=== PATIENT | male | born 1950 | race Caucasian/White ===

== ENCOUNTER 2019-03-14 10:34 | Inpatient (IN) | payer OTHER ==
[~2019-03-14] VITALS: Ht 190.5 cm; Wt 211.4 kg
[2019-03-14] MEDS ORDERED: CLINDAMYCIN 900MG IV 50 ML IV ONE (12:30)
[2019-03-14] MEDS ORDERED: PIPERACILLIN-TAZOB 3.375GM 100 ML IV ONE (12:30)
[2019-03-14 13:22] LABS: Basophils # (auto) 0.1 uL; Basophils % (auto) 1.1 % (0.0-2.0); Eosinophils # (auto) 0.1 uL; Eosinophils % (auto) 1.5 % (0.0-7.0); Hematocrit 40.3 % (41.0-53.0); Hemoglobin 13.1 g/dL (13.5-17.5); Lymphocytes # (auto) 1.8 uL; Lymphocytes % (auto) 21.1 % (10.0-50.0); Mean Corpuscular Hgb Conc. 32.6 g/dL (32.0-36.0); Monocytes # (auto) 0.6 uL; Monocytes % (auto) 7.7 % (0.0-12.0); Neutrophils # (auto) 5.7 uL; Neutrophils % (auto) 68.6 % (37.0-80.0); Nucleated Red Blood Cells % 0.1 %; Platelet Count (auto) 263 10^3/uL (140-450); Red Blood Cells 4.53 10^6/uL (4.5-5.90); Red Cell Distribution Width 15.8 % (11.8-14.3); White Blood Cell 8.4 10^3/uL (4.4-10.8)
[2019-03-14 13:47] LABS: Albumin 3.4 g/dL (3.4-5.0); BUN/Creatinine Ratio 21.2; Bilirubin, Total 0.4 mg/dL (0.2-1.0); Potassium 4.4 mmol/L (3.5-5.1); Total Protein 8.2 g/dL (6.4-8.2)
[2019-03-14] MEDS ORDERED: NITROGLYCERIN 0.4 MG SL TAB SL PRN (15:15)
[2019-03-14] MEDS ORDERED: MORPHINE SULF INJ 2 MG/ML SYRINGE 1ML IV PRN (15:15)
[2019-03-14] MEDS ORDERED: ONDANSETRON HCL 4 MG/2 ML VIAL IV PRN (15:15)
[2019-03-14] MEDS: HYDROcodone-ACET 5/325MG TAB PO PRN (17:10)
[2019-03-14 20:00] VITALS: BP 152/79
[2019-03-14] MEDS: MORPHINE SULF INJ 2 MG/ML SYRINGE 1ML IV PRN (20:57)
[2019-03-14] MEDS: CLINDAMYCIN 600MG IV 50 ML IV SCH (21:02)
[2019-03-14 22:00] VITALS: BP 152/79
[2019-03-15] MEDS: HYDROcodone-ACET 5/325MG TAB PO PRN (01:56)
[2019-03-15] MEDS ORDERED: INFLUENZA QUAD 2019-2020 0.5ml SYRG IM ONE (04:30)
[2019-03-15] MEDS ORDERED: PNEUMOCOCCAL VACC POLYS 25 MCG/0.5 ML VIAL IM ONE (04:30)
[2019-03-15 05:00] VITALS: BP 119/58
[2019-03-15] MEDS: MORPHINE SULF INJ 2 MG/ML SYRINGE 1ML IV PRN (05:42)
[2019-03-15] MEDS: CLINDAMYCIN 600MG IV 50 ML IV SCH ×2 (06:00→14:00)
[2019-03-15 09:00] VITALS: BP 134/65
[2019-03-15] MEDS ORDERED: CLIN300C8 PO (12:24)
[2019-03-15 12:40] VITALS: BP 134/65
[2019-03-15 13:00] VITALS: BP 155/85
== END 2019-03-15 16:15 | disposition home health service (06) | DRG 603 ==
LOC: ER 10:39 → TELE 10:40 → TELE-WESTW 18:20
PROVIDERS: ADMIT Internal Medicine; ATTEND Internal Medicine
DX: L03.115 Cellulitis of right lower limb (principal); Z68.43 Body mass index [BMI] 50.0-59.9, adult; I89.0 Lymphedema, not elsewhere classified; F17.200 Nicotine dependence, unspecified, uncomplicated; L03.116 Cellulitis of left lower limb; E66.01 Morbid (severe) obesity due to excess calories; Z83.3 Family history of diabetes mellitus; Z86.718 Personal history of other venous thrombosis and embolism; Z23 Encounter for immunization
CPT/HCPCS: 36415; 71045; 80053; 83605; 83880; 85025; 87040; 87077; 87186; 87205; 93970; G0378; J2543; J3490

== ENCOUNTER 2019-04-20 14:02 | Inpatient (IN) | payer OTHER ==
[~2019-04-20] VITALS: Ht 190.5 cm; Wt 200.1 kg
[~2019-04-20 14:02] MED LIST: CLIN300C8 PO
[2019-04-20 14:45] LABS: Basophils # (auto) 0.1 uL; Basophils % (auto) 0.7 % (0.0-2.0); Eosinophils # (auto) 0.1 uL; Eosinophils % (auto) 1.3 % (0.0-7.0); Hematocrit 40.2 % (41.0-53.0); Hemoglobin 13.5 g/dL (13.5-17.5); Lymphocytes # (auto) 1.4 uL; Lymphocytes % (auto) 17.9 % (10.0-50.0); Mean Corpuscular Hemoglobin 29.8 pg (28.0-32.0); Mean Corpuscular Hgb Conc. 33.5 g/dL (32.0-36.0); Monocytes # (auto) 0.6 uL; Monocytes % (auto) 7.3 % (0.0-12.0); Neutrophils # (auto) 5.7 uL; Neutrophils % (auto) 72.8 % (37.0-80.0); Nucleated Red Blood Cells % 0.1 %; Platelet Count (auto) 247 10^3/uL (140-450); Red Blood Cells 4.52 10^6/uL (4.5-5.90); Red Cell Distribution Width 15.4 % (11.8-14.3); White Blood Cell 7.8 10^3/uL (4.4-10.8)
[2019-04-20] MEDS ORDERED: SODIUM CHLORIDE 0.9% 500 ML IV ONE (14:54)
[2019-04-20 15:00] LABS: Albumin 3.4 g/dL (3.4-5.0); Calcium 8.7 mg/dL (8.5-10.1)
[2019-04-20] MEDS ORDERED: CLINDAMYCIN 600MG IV 50 ML IV ONE (15:00)
[2019-04-20 15:06] LABS: BUN/Creatinine Ratio 16.9; Bilirubin, Total 0.4 mg/dL (0.2-1.0); Total Protein 8.1 g/dL (6.4-8.2)
[2019-04-20] MEDS ORDERED: VANCOMYCIN PER PHARMACY 0 MG IV SCH (17:45)
[2019-04-20] MEDS ORDERED: MORPHINE SULF INJ 2 MG/ML SYRINGE 1ML IV PRN (17:45)
[2019-04-20] MEDS ORDERED: NITROGLYCERIN 0.4 MG SL TAB SL PRN (17:45)
[2019-04-20] MEDS ORDERED: VANCOMYCIN 1GM/250ML 250 ML IV ONE (18:00)
[2019-04-20] MEDS ORDERED: PIPERACILLIN-TAZOB 3.375GM 100 ML IV ONE ×2 (19:00→21:45)
[2019-04-20 20:45] VITALS: BP 158/74
[2019-04-20 20:48] VITALS: BP 158/74
--- NOTE | 2019-04-20 20:50 | NUR ---
Telemetry admit from [facility] admitted to Telemetry unit. Patient oriented to Abhay Andrews, primary RN, unit, room, bed, and unit policies regarding patient care and visiting hours. Patient now on continuous telemetry monitoring, tele box #68 and telemetry reading on arrival to unit is SR 90. Patient has been weighed by bedscale and encouraged to call if they need something. All questions and concerns addressed, patient verbalized understanding.
--- NOTE | 2019-04-20 21:50 | NUR ---
PAIN ASSESSMENT The patient reports severe bilateral leg pain with a severity of 9/10. The patient currently has no PRN pain medication. Will page hospitalist.
[2019-04-20] MEDS: POTASSIUM EFFERVESENT TAB 25 MEQ PO SCH (22:00)
--- NOTE | 2019-04-20 22:50 | NUR ---
HOSPITALIST CALL BACK Discussed the patient's severe pain with Hospitalist Joao. New order has been received.
[2019-04-20] MEDS: traMADol HCL 50 MG TAB PO PRN (23:25)
[2019-04-20] MEDS: VANCOMYCIN 1,500 MG in D5W 5% 250 ML IV SCH (23:53)
[2019-04-21] MEDS ORDERED: MULT-228 PO (00:18)
[2019-04-21] MEDS: traMADol HCL 50 MG TAB PO PRN ×2 (03:01→19:50)
[2019-04-21] MEDS: PIPERACILLIN-TAZOB 3.375GM 100 ML IV SCH ×4 (03:02→21:23)
[2019-04-21 04:57] VITALS: BP 135/71
[2019-04-21] MEDS: VANCOMYCIN 1,500 MG in D5W 5% 250 ML IV SCH ×3 (06:45→22:37)
[2019-04-21 07:10] LABS: Basophils # (auto) 0 uL; Basophils % (auto) 0.5 % (0.0-2.0); Eosinophils # (auto) 0.1 uL; Eosinophils % (auto) 1.9 % (0.0-7.0); Hematocrit 35.5 % (41.0-53.0); Lymphocytes # (auto) 1.3 uL; Lymphocytes % (auto) 21.1 % (10.0-50.0); Mean Corpuscular Hgb Conc. 33.8 g/dL (32.0-36.0); Monocytes # (auto) 0.6 uL; Monocytes % (auto) 8.9 % (0.0-12.0); Neutrophils # (auto) 4.3 uL; Neutrophils % (auto) 67.6 % (37.0-80.0); Nucleated Red Blood Cells % 0.1 %; Platelet Count (auto) 199 10^3/uL (140-450); Red Blood Cells 3.99 10^6/uL (4.5-5.90); Red Cell Distribution Width 15.5 % (11.8-14.3); White Blood Cell 6.3 10^3/uL (4.4-10.8)
[2019-04-21 07:24] LABS: Calcium 7.9 mg/dL (8.5-10.1); Potassium 3.5 mmol/L (3.5-5.1)
[2019-04-21 07:26] LABS: BUN/Creatinine Ratio 16.4
[2019-04-21 08:00] VITALS: BP 130/73
[2019-04-21 09:00] VITALS: BP 130/73
[2019-04-21] MEDS: POTASSIUM EFFERVESENT TAB 25 MEQ PO SCH ×3 (09:02→22:37)
--- NOTE | 2019-04-21 11:02 | NUR ---
WOUND CARE NOTE: Wound care in to see patient per wound care request regarding wounds that are noted present on admission. Bedside nurse took photograph of patient's wounds upon admission for reference. Patient is 68 y/o male with admitting diagnosis of Leg Cellulitis. Patient with history of Cellulitis, [place], PE. Patient is resting in bed in Rm. 295A. He's awake, alert and oriented. Patient is in no stated pain at this time. He's self turn and reposition and his Nando score is 20. Skin assessment done with the assistance of patient's nurse, SAHRA Lin. Patient's BLE noted with edema, erythema with spread of raised hyperkeratotic lesions. Minimal yellow serous drainage noted on old dressing, mild odor noted. Cleansed patient's BLE wounds with wound cleanser, patted dry with gauze, applied Thera honey gel to open lesions, covered with large abd pads, wrapped with Kerlix and secured with tape. No other wound noted other than two small red scratches, ecchymosis to upper sacrum, area is clean and dry, left open to air. Patient tolerated well. Skin/wound care education provided, verbalized understanding. Left patient sitting at side of bed with all safety precautions in placed. RECOMMENDATION: Nursing to continue EOD/PRN dressing change to BLE wounds per MD order, elevate affected extremity on pillows, continue monitoring by wound care while patient is hospitalized. Addendum: 04/21/19 at 1459 by Kimberly Cook RN Amended: Links added.
[2019-04-21 13:00] VITALS: BP 116/73
[2019-04-21 16:55] LABS: Free T4 (Free Thyroxine) 1.22 ng/dL (0.89-1.76)
[2019-04-21 17:00] VITALS: BP 114/70
--- NOTE | 2019-04-21 17:00 | NUR ---
PT REPORTS THAT HE WALKS FINE WITH CANE AND DOES NOT NEED P.T.
--- NOTE | 2019-04-21 17:25 | NUR ---
D/C planning Per consult for home health for wound care. Patient was previously with [facility] and would like to resume service with home health. Contact and faxed medical records to [facility] Ph:) Fax:). Per Liberty from [facility] they will resume service for patient within 48hrs upon d/c day. Contact [facility] medical [facility] Ph:) spoke to RADHA Akhtar. Per Giovana authorization for [facility] is [id number]. Provided home health with authorization. Addendum: 04/21/19 at 1728 by KIMBERLEE SOLO Amended: Links added.
--- NOTE | 2019-04-21 19:20 | NUR ---
Opening Shift Note Assumed care of patient, awake and alert. No S/S of distress/SOB. The patient c/o bilateral leg pain with a severity of 6/10. Patient is requesting pain medication. Will treat with PRN pain medication. Instructed on POC and to call for assist PRN, will continue to monitor for changes Q1hr and PRN.
[2019-04-21 21:00] VITALS: BP 129/66
[2019-04-21] MEDS: FUROSEMIDE 40 MG/4 ML VIAL IV SCH (22:00)
[2019-04-21] MEDS: GABAPENTIN 400 MG CAP PO SCH (22:37)
[2019-04-21] MEDS: CELECOXIB 100 MG CAP PO SCH (22:37)
[2019-04-22] VITALS (8 sets, daily range): BP systolic 111–132; BP diastolic 63–79
[2019-04-22] MEDS: PIPERACILLIN-TAZOB 3.375GM 100 ML IV SCH ×4 (05:40→21:10)
[2019-04-22 06:33] LABS: BUN/Creatinine Ratio 11.3
[2019-04-22] MEDS: GABAPENTIN 400 MG CAP PO SCH ×3 (07:01→21:10)
[2019-04-22] MEDS: FUROSEMIDE 40 MG/4 ML VIAL IV SCH ×3 (07:01→21:11)
[2019-04-22] MEDS: VANCOMYCIN 1,500 MG in D5W 5% 250 ML IV SCH ×2 (07:39→17:38)
[2019-04-22] MEDS: CELECOXIB 100 MG CAP PO SCH ×2 (09:11→21:11)
[2019-04-22] MEDS: ENOXAPARIN SOD 40 MG/0.4 ML SYRINGE SC SCH (09:12)
[2019-04-22] MEDS: POTASSIUM EFFERVESENT TAB 25 MEQ PO SCH ×2 (09:12→21:11)
[2019-04-22 09:15] LABS: Cholesterol 111 mg/dL (< 200)
[2019-04-22 09:17] LABS: HDL Cholesterol 40 mg/dL (40-59); LDL Cholesterol 62 mg/dL (< 100); Triglycerides 61 mg/dL (< 150)
--- NOTE | 2019-04-22 19:36 | NUR ---
Opening Shift Note Received report and assumed care of patient. Patient is awake and alert. No signs or symptoms of distress noted, patient currently denies pain. Instructed patient on plan of care and to call for assistance as needed. Will continue to monitor.
--- NOTE | 2019-04-23 00:34 | NUR ---
IV removal 20g IV to the Left forearm infiltrated. Discontinued IV with clean sterile technique, catheter tip fully intact. Pressure dressing applied to site. Patient tolerated well. Addendum: 04/23/19 at 0149 by ELLY NIX RN RN 22g
[2019-04-23] MEDS: PIPERACILLIN-TAZOB 3.375GM 100 ML IV SCH ×2 (02:51→09:53)
[2019-04-23 05:24] VITALS: BP 126/72
[2019-04-23] MEDS: GABAPENTIN 400 MG CAP PO SCH (06:20)
[2019-04-23] MEDS: FUROSEMIDE 40 MG/4 ML VIAL IV SCH (06:20)
[2019-04-23] MEDS: VANCOMYCIN 1,500 MG in D5W 5% 250 ML IV SCH (06:21)
[2019-04-23 06:26] LABS: Basophils # (auto) 0 uL; Basophils % (auto) 0.7 % (0.0-2.0); Eosinophils # (auto) 0.2 uL; Eosinophils % (auto) 3.5 % (0.0-7.0); Hematocrit 37.8 % (41.0-53.0); Hemoglobin 12.8 g/dL (13.5-17.5); Lymphocytes # (auto) 1.7 uL; Lymphocytes % (auto) 33.5 % (10.0-50.0); Mean Corpuscular Hgb Conc. 33.9 g/dL (32.0-36.0); Mean Corpuscular Volume 88.4 fL (80.0-100.0); Monocytes # (auto) 0.5 uL; Monocytes % (auto) 9.6 % (0.0-12.0); Neutrophils # (auto) 2.7 uL; Neutrophils % (auto) 52.7 % (37.0-80.0); Nucleated Red Blood Cells % 0.1 %; Platelet Count (auto) 226 10^3/uL (140-450); Red Blood Cells 4.27 10^6/uL (4.5-5.90); Red Cell Distribution Width 15.7 % (11.8-14.3); White Blood Cell 5.2 10^3/uL (4.4-10.8)
[2019-04-23 06:45] LABS: Calcium 8.5 mg/dL (8.5-10.1); Potassium 3.9 mmol/L (3.5-5.1)
[2019-04-23 06:51] LABS: BUN/Creatinine Ratio 13.6; Bilirubin, Total 0.4 mg/dL (0.2-1.0); Total Protein 7.7 g/dL (6.4-8.2)
--- NOTE | 2019-04-23 07:30 | NUR ---
Opening Shift Note Assumed care of patient, awake and alert. No S/S of distress/SOB or pain. Instructed on POC and to call for assist PRN, will continue to monitor for changes Q1hr and PRN. Fall precautions in place per safety protocol.
--- NOTE | 2019-04-23 08:41 | NUR ---
Hospitalist called MD Shaw called, aware of patient status. New orders to discharge patient received, will carry out new orders.
[2019-04-23 09:00] VITALS: BP 134/75
[2019-04-23] MEDS: ENOXAPARIN SOD 40 MG/0.4 ML SYRINGE SC SCH (09:53)
[2019-04-23] MEDS: POTASSIUM EFFERVESENT TAB 25 MEQ PO SCH (09:53)
[2019-04-23] MEDS: CELECOXIB 100 MG CAP PO SCH (09:53)
[2019-04-23 10:20] VITALS: BP 126/72
--- NOTE | 2019-04-23 12:00 | NUR ---
Discharge instructions given as ordered. Encourage to follow up with PMD as instructed. All questions and concerns addressed. Patient verbalized understanding. Medication reconciliation form completed and copy given to patient. IV removed with catheter intact, pressure dressing applied. Photos of wounds taken. Telemetry unit returned to ICU. Patient taken to vehicle via wheelchair with all personal belongings, accompanied by staff. No distress noted at time of departure.
== END 2019-04-23 12:00 | disposition home health service (06) | DRG 603 ==
LOC: ER 14:11 → TELE 14:12 → TELE-WESTW 20:53
PROVIDERS: ADMIT Hospitalist; ATTEND Hospitalist
DX: L03.116 Cellulitis of left lower limb (principal); Z68.43 Body mass index [BMI] 50.0-59.9, adult; L03.115 Cellulitis of right lower limb; F17.200 Nicotine dependence, unspecified, uncomplicated; E66.01 Morbid (severe) obesity due to excess calories; I25.2 Old myocardial infarction; Z86.711 Personal history of pulmonary embolism; Z79.01 Long term (current) use of anticoagulants; Z79.899 Other long term (current) drug therapy
CPT/HCPCS: 36415; 80048; 80053; 80061; 80202; 82607; 83036; 83605; 84439; 84443; 85025; 85652; 86141; 87040; 87077; 87186; 87205; 93306; 93970; 96365; 96367; G0378; J2543; J3490; J7060

== ENCOUNTER 2023-04-01 00:42 | Inpatient (IN) | payer OTHER ==
[~2023-04-01] VITALS: Ht 177.8 cm; Wt 181.0 kg
[2023-04-01] VITALS (10 sets, daily range): BP systolic 127; BP diastolic 63; PULSE 74–94; RESP 12–22; TEMP 98.3; O2SAT 94–100
[~2023-04-01 00:42] MED LIST changes: +CLIN300C70 PO; -CLIN300C8 PO; +MULT-228 PO
[2023-04-01] MEDS ORDERED: ACETAMINOPHEN 325 MG TAB PO ONE (01:45)
[2023-04-01] MEDS: ASPirin 81 mg TAB PO ONE ×2 (02:41→02:53)
[2023-04-01] MEDS ORDERED: ALBUTEROL MEDNEB 2.5 mg/3ml NEB NEB ONE (02:45)
[2023-04-01] MEDS ORDERED: VANCOMYCIN PER PHARMACY 0 MG IV SCH (02:45)
[2023-04-01] MEDS ORDERED: methylPREDNISolone SOD SUCC 125 MG/2 ML VL IV ONE (02:45)
[2023-04-01] MEDS ORDERED: IPRATROPIUM BROM 0.5 MG/2.5ML INH SOL NEB ONE (02:45)
[2023-04-01] MEDS ORDERED: AZITHROMYCIN 500MG/ 250ML 250 ML IV ONE (02:45)
[2023-04-01 02:58] LABS: Base Excess -0.8 mmol/L (-2.0-2.0)
[2023-04-01] MEDS ORDERED: cefTRIAXone 1GM/50ML D5W 50 ML IV SCH (03:00)
[2023-04-01 03:06] LABS: Basophils # (auto) 0 10 ^3/uL (0-0.2); Basophils % (auto) 0.2 % (0.0-2.0); Eosinophils # (auto) 0 10 ^3/uL (0-0.8); Hematocrit 35.5 % (41.0-53.0); Hemoglobin 11.5 g/dL (13.5-17.5); Lymphocytes # (auto) 0.7 10 ^3/uL (0.4-5.4); Mean Corpuscular Hemoglobin 30.8 pg (28.0-32.0); Mean Corpuscular Hgb Conc. 32.5 g/dL (32.0-36.0); Mean Corpuscular Volume 94.6 fL (80.0-100.0); Monocytes # (auto) 1.6 10 ^3/uL (0-1.3); Monocytes % (auto) 11.2 % (0.0-12.0); Neutrophils # (auto) 11.8 10 ^3/uL (1.6-8.6); Neutrophils % (auto) 83.6 % (37.0-80.0); Red Blood Cells 3.75 10^6/uL (4.5-5.90); Red Cell Distribution Width 14.1 % (11.8-14.3); White Blood Cell 14.2 10^3/uL (4.4-10.8)
[2023-04-01 03:18] LABS: INR 1.15 (0.9-1.15); Partial Thromboplastin Time 34.7 SEC (24.5-34.5)
[2023-04-01 03:27] LABS: Alanine Aminotransferase 26 U/L (7-40); Alkaline Phosphatase 65 U/L (46-116); Calcium 8.5 mg/dL (8.7-10.4); Carbon Dioxide 24 mmol/L (20-30); Chloride 102 mmol/L (98-107)
[2023-04-01 03:28] LABS: Albumin 3.9 g/dL (3.2-4.8); Anion Gap 6 (5-15); Aspartate Aminotransferase 37 U/L (13-40); BUN/Creatinine Ratio 17.7 (10.0-20.0); Bilirubin, Total 0.6 mg/dL (0.2-1.0); Blood Urea Nitrogen 14 mg/dL (9-23); Glucose 144 mg/dL (74-106); Potassium 4.1 mmol/L (3.5-5.1); Sodium 132 mmol/L (136-145); Total Protein 6.9 g/dL (5.7-8.2)
[2023-04-01] MEDS ORDERED: VANCOMYCIN 1GM/250ML 250 ML IV ONE (04:00)
[2023-04-01 05:30] LABS: COVID19 ANTIGEN SOFIA FIA NEGATIVE (NEGATIVE)
[2023-04-01 08:21] LABS: Urine Bacteria NONE SEEN /hpf (None Seen); Urine Blood Negative /uL (Negative); Urine Clarity HAZY (Clear); Urine Color Yellow (Yellow); Urine Hyaline Cast MOD /lpf (0 - 2); Urine Mucus MANY (None Seen); Urine Protein, UAD 2+ (Negative); Urine Specific Gravity 1.031 (1.001-1.035); Urine WBC 33 /hpf (0 - 3)
[2023-04-01] MEDS: IPRATROPIUM BROM 0.5 MG/2.5ML INH SOL NEB SCH ×3 (10:03→18:25)
[2023-04-01] MEDS: ALBUTEROL MEDNEB 2.5 mg/3ml NEB NEB SCH ×3 (10:03→18:25)
[2023-04-01] MEDS: methylPREDNISolone SOD SUCC 40 MG/ML VL IV SCH ×2 (10:25→21:46)
[2023-04-01] MEDS: levoFLOXacin 500MG 100 ML IV SCH (10:39)
[2023-04-01] MEDS ORDERED: VANCOMYCIN 1GM/250ML 250 ML IV SCH (12:00)
[2023-04-02] VITALS (19 sets, daily range): BP systolic 117–134; BP diastolic 60–73; PULSE 76–119; RESP 18–22; TEMP 98–99.5; O2SAT 90–98
[2023-04-02] MEDS: ALBUTEROL MEDNEB 2.5 mg/3ml NEB NEB SCH ×6 (00:30→22:45)
[2023-04-02] MEDS: IPRATROPIUM BROM 0.5 MG/2.5ML INH SOL NEB SCH ×6 (00:30→22:45)
[2023-04-02 08:18] LABS: Basophils # (auto) 0 10 ^3/uL (0-0.2); Basophils % (auto) 0.3 % (0.0-2.0); Eosinophils # (auto) 0 10 ^3/uL (0-0.8); Hematocrit 33.5 % (41.0-53.0); Hemoglobin 10.9 g/dL (13.5-17.5); Mean Corpuscular Hgb Conc. 32.7 g/dL (32.0-36.0); Mean Corpuscular Volume 91.7 fL (80.0-100.0); Monocytes % (auto) 6.3 % (0.0-12.0); Neutrophils # (auto) 14.3 10 ^3/uL (1.6-8.6); Neutrophils % (auto) 87.4 % (37.0-80.0); Red Blood Cells 3.65 10^6/uL (4.5-5.90); Red Cell Distribution Width 14.2 % (11.8-14.3); White Blood Cell 16.4 10^3/uL (4.4-10.8)
[2023-04-02] MEDS: methylPREDNISolone SOD SUCC 40 MG/ML VL IV SCH ×2 (09:31→21:45)
[2023-04-02] MEDS: levoFLOXacin 500MG 100 ML IV SCH (09:31)
[2023-04-02] MEDS ORDERED: HYDROcodone-ACET 5/325MG TAB PO PRN (12:15)
[2023-04-02] MEDS: NYSTATIN TOPICAL POWDER 15GM TOP SCH (22:16)
[2023-04-03] VITALS (17 sets, daily range): BP systolic 129–144; BP diastolic 72–91; PULSE 70–107; RESP 16–20; TEMP 97.5–98.2; O2SAT 91–100
[2023-04-03] MEDS: ALBUTEROL MEDNEB 2.5 mg/3ml NEB NEB SCH ×5 (06:22→22:36)
[2023-04-03] MEDS: IPRATROPIUM BROM 0.5 MG/2.5ML INH SOL NEB SCH ×5 (06:22→22:36)
[2023-04-03] MEDS: levoFLOXacin 500MG 100 ML IV SCH (11:26)
[2023-04-03] MEDS: NYSTATIN TOPICAL POWDER 15GM TOP SCH ×2 (11:26→22:27)
[2023-04-03] MEDS: methylPREDNISolone SOD SUCC 40 MG/ML VL IV SCH ×2 (11:26→22:24)
[2023-04-04] VITALS (17 sets, daily range): BP systolic 123–146; BP diastolic 65–79; PULSE 62–123; RESP 16–22; TEMP 97.8–98.8; O2SAT 90–98
[2023-04-04] MEDS: IPRATROPIUM BROM 0.5 MG/2.5ML INH SOL NEB SCH ×5 (06:42→22:18)
[2023-04-04] MEDS: ALBUTEROL MEDNEB 2.5 mg/3ml NEB NEB SCH ×5 (06:42→22:18)
[2023-04-04 08:41] LABS: Hepatitis B Surface Antigen Negative (Negative)
[2023-04-04 09:02] LABS: Hepatitis C Antibody Negative (Negative)
[2023-04-04] MEDS: NYSTATIN TOPICAL POWDER 15GM TOP SCH ×2 (11:02→22:01)
[2023-04-04] MEDS: levoFLOXacin 500MG 100 ML IV SCH (11:02)
[2023-04-04] MEDS: methylPREDNISolone SOD SUCC 40 MG/ML VL IV SCH ×2 (11:02→21:58)
[2023-04-04] MEDS: DOCUSATE SOD 100 MG CAP PO PRN (20:34)
[2023-04-05] VITALS (10 sets, daily range): BP systolic 121–138; BP diastolic 62–76; PULSE 18–91; RESP 18–20; TEMP 97.3–98.3; O2SAT 90–95
[2023-04-05] MEDS: ALBUTEROL MEDNEB 2.5 mg/3ml NEB NEB SCH ×2 (07:25→12:37)
[2023-04-05] MEDS: IPRATROPIUM BROM 0.5 MG/2.5ML INH SOL NEB SCH ×2 (07:26→12:37)
[2023-04-05] MEDS: methylPREDNISolone SOD SUCC 40 MG/ML VL IV SCH (10:13)
[2023-04-05] MEDS ORDERED: levoFLOXacin 500 MG TAB PO SCH (14:00)
[2023-04-05] MEDS: DOCUSATE SOD 100 MG CAP PO PRN (14:45)
== END 2023-04-05 18:20 | DRG 189 ==
LOC: EDBD 00:42 → ER 00:42 → TELE 17:45 → TELE-WESTW 23:19
PROVIDERS: ADMIT Internal Medicine; ATTEND Internal Medicine
DX: J96.01 Acute respiratory failure with hypoxia (principal); J44.1 Chronic obstructive pulmonary disease with (acute) exacerbation; Z68.43 Body mass index [BMI] 50.0-59.9, adult; E66.01 Morbid (severe) obesity due to excess calories; R73.9 Hyperglycemia, unspecified; G62.9 Polyneuropathy, unspecified; S00.33XA Contusion of nose, initial encounter; Z53.20 Procedure and treatment not carried out because of patient's decision for unspecified reasons; Z83.3 Family history of diabetes mellitus; Z20.822 Contact with and (suspected) exposure to COVID-19; W18.39XA Other fall on same level, initial encounter; Y93.89 Activity, other specified; Y92.89 Other specified places as the place of occurrence of the external cause; Y99.8 Other external cause status
CPT/HCPCS: 36415; 36600; 70450; 71045; 71275; 80053; 81001; 82553; 82565; 82805; 83605; 83735; 83880; 84443; 84484; 85025; 85379; 85610; 85730; 86803; 87040; 87070; 87086; 87205; 87340; 87426; 93005; 93306; 94640; 95819; 96365; 96367; 96375; 97110; 97116; 97163; 97530; 99291; G0378; J0696; J1956

== ENCOUNTER 2023-04-26 09:07 | Observation (INO) | payer OTHER ==
[~2023-04-26] VITALS: Ht 167.6 cm; Wt 199.0 kg
[2023-04-26 09:30] VITALS: PULSE 93; RESP 24; O2SAT 95
[2023-04-26] MEDS ORDERED: ACCU-CHEK COMFORT CURVE STRIP VI ONE (09:30)
[2023-04-26 10:09] LABS: Basophils # (auto) 0 10 ^3/uL (0-0.2); Basophils % (auto) 0.6 % (0.0-2.0); Eosinophils # (auto) 0.1 10 ^3/uL (0-0.8); Eosinophils % (auto) 1.1 % (0.0-7.0); Hemoglobin 13.6 g/dL (13.5-17.5); Lymphocytes # (auto) 1.1 10 ^3/uL (0.4-5.4); Lymphocytes % (auto) 20.2 % (10.0-50.0); Mean Corpuscular Hemoglobin 30.7 pg (28.0-32.0); Mean Corpuscular Hgb Conc. 33.2 g/dL (32.0-36.0); Mean Corpuscular Volume 92.5 fL (80.0-100.0); Monocytes # (auto) 0.5 10 ^3/uL (0-1.3); Monocytes % (auto) 8.9 % (0.0-12.0); Neutrophils # (auto) 3.8 10 ^3/uL (1.6-8.6); Neutrophils % (auto) 69.2 % (37.0-80.0); Nucleated Red Blood Cells % 0.1 %; Red Blood Cells 4.44 10^6/uL (4.5-5.90); Red Cell Distribution Width 14.8 % (11.8-14.3); White Blood Cell 5.5 10^3/uL (4.4-10.8)
[2023-04-26 10:28] LABS: Alanine Aminotransferase 40 U/L (7-40); Alkaline Phosphatase 55 U/L (46-116); Anion Gap 10 (5-15); BUN/Creatinine Ratio 17.7 (10.0-20.0); Blood Urea Nitrogen 11 mg/dL (9-23); Calcium 9.7 mg/dL (8.5-10.1); Carbon Dioxide 27 mmol/L (20-30); Chloride 104 mmol/L (98-107); Glucose 120 mg/dL (74-106); Potassium 4.2 mmol/L (3.5-5.1); Sodium 141 mmol/L (136-145)
[2023-04-26 10:29] LABS: Aspartate Aminotransferase 25 U/L (13-40); Bilirubin, Total 0.8 mg/dL (0.2-1.0)
[2023-04-26 10:40] LABS: Lactic Acid w/Reflex 2.3 mmol/L (0.4-2.0)
[2023-04-26] MEDS ORDERED: AMIODARONE 450mg/250ml AE 250 ML IV SCH (12:30)
[2023-04-26] MEDS ORDERED: AMIODARONE BOLUS KIT 100 ML IV ONE (12:30)
[2023-04-26 13:20] LABS: Urine Bacteria NONE SEEN /hpf (None Seen); Urine Blood Negative /uL (Negative); Urine Clarity HAZY (Clear); Urine Color Yellow (Yellow); Urine Hyaline Cast FEW /lpf (0 - 2); Urine Mucus FEW (None Seen); Urine Protein, UAD 1+ (Negative); Urine Specific Gravity 1.031 (1.001-1.035); Urine WBC 12 /hpf (0 - 3)
[2023-04-26 13:54] LABS: Amphetamine Screen, Urine Neg (NEGATIVE); Benzodiazephine Screen, Urine Neg (NEGATIVE)
[2023-04-26 13:55] LABS: Barbiturate Scree,Urine Neg (NEGATIVE); Cocaine Screen, Urine Neg (NEGATIVE)
[2023-04-26 13:59] LABS: Cannabinoid Screen, Urine Neg (NEGATIVE); Opiate Scree,Urine Pos (NEGATIVE); Phencyclidine Screen, Urine Neg (NEGATIVE)
[2023-04-26] MEDS ORDERED: ONDANSETRON HCL 4 MG/2 ML VIAL IV PRN (14:15)
[2023-04-26] MEDS: METOPROLOL TARTRATE 25 MG TAB PO SCH ×2 (15:44→22:05)
[2023-04-26 19:40] VITALS: PULSE 93; RESP 20; O2SAT 95
[2023-04-26] MEDS: DOCUSATE SOD 100 MG CAP PO PRN (22:01)
[2023-04-26 22:44] VITALS: BP 132/66; PULSE 82; RESP 18; TEMP 98.2; O2SAT 96
[2023-04-26] MEDS: ACETAMINOPHEN 325 MG TAB PO PRN (23:29)
[2023-04-27 04:47] VITALS: BP 128/76; PULSE 84; RESP 18; TEMP 97.9; O2SAT 95
[2023-04-27 08:00] VITALS: BP 158/84; PULSE 75; PULSE 91; RESP 20; TEMP 97.6; O2SAT 98
[2023-04-27] MEDS: ACETAMINOPHEN 325 MG TAB PO PRN ×2 (10:58→18:52)
[2023-04-27] MEDS: METOPROLOL TARTRATE 25 MG TAB PO SCH ×2 (10:58→22:25)
[2023-04-27 12:00] VITALS: BP 132/70; PULSE 82; RESP 20; TEMP 97.8; O2SAT 96
[2023-04-27] MEDS: APIXABAN 5 MG TAB PO SCH ×2 (12:00→22:25)
[2023-04-27 16:00] VITALS: BP 119/71; PULSE 88; RESP 20; TEMP 97.8; O2SAT 95
[2023-04-27] MEDS: DOCUSATE SOD 100 MG CAP PO PRN (18:52)
[2023-04-27 20:00] VITALS: PULSE 88
[2023-04-27 22:00] VITALS: BP 118/67; PULSE 86; RESP 18; TEMP 98.4; O2SAT 94
[2023-04-27] MEDS: MUPIROCIN 2% OINT 15gm or 22gm FOR MRSA NARES EACHNOSTRI SCH (22:24)
[2023-04-28 05:00] VITALS: BP 130/77; PULSE 73; RESP 19; TEMP 98.1; O2SAT 93
[2023-04-28 08:00] VITALS: BP 127/76; PULSE 65; PULSE 84; RESP 20; TEMP 97.5
[2023-04-28 09:27] VITALS: BP 127/76; PULSE 84; RESP 20; TEMP 97.5; O2SAT 95
[2023-04-28] MEDS: METOPROLOL TARTRATE 25 MG TAB PO SCH (09:36)
[2023-04-28] MEDS: APIXABAN 5 MG TAB PO SCH (09:36)
[2023-04-28] MEDS: MUPIROCIN 2% OINT 15gm or 22gm FOR MRSA NARES EACHNOSTRI SCH (09:47)
[2023-04-28 13:15] VITALS: BP 129/69; PULSE 76; RESP 20; TEMP 97.7; O2SAT 94
[2023-04-28 13:40] VITALS: BP 127/76; PULSE 84; RESP 20; TEMP 97.5; O2SAT 95
== END 2023-04-28 16:30 ==
LOC: EDBD 09:07 → ER 09:07 → TELE 15:03 → TELE-EAST 22:07
PROVIDERS: ADMIT Internal Medicine; ATTEND Internal Medicine
DX: I48.0 Paroxysmal atrial fibrillation (principal); I11.0 Hypertensive heart disease with heart failure; I50.22 Chronic systolic (congestive) heart failure; J40 Bronchitis, not specified as acute or chronic; R53.81 Other malaise; F17.200 Nicotine dependence, unspecified, uncomplicated; E66.01 Morbid (severe) obesity due to excess calories; I25.2 Old myocardial infarction; Z22.322 Carrier or suspected carrier of Methicillin resistant Staphylococcus aureus; Z86.711 Personal history of pulmonary embolism; Z79.899 Other long term (current) drug therapy; Z68.45 Body mass index [BMI] 70 or greater, adult
CPT/HCPCS: 36415; 71045; 80053; 80307; 81001; 82962; 83605; 83880; 84484; 85025; 87040; 87077; 87081; 87086; 87186; 93005; 97163; 99285; G0378

== ENCOUNTER 2023-05-27 10:30 | Inpatient (IN) | payer OTHER ==
[~2023-05-27] VITALS: Ht 177.8 cm; Wt 187.3 kg
[2023-05-27] MEDS ORDERED: methylPREDNISolone SOD SUCC 125 MG/2 ML VL IV ONE (11:00)
[2023-05-27 11:32] LABS: Basophils # (auto) 0.1 10 ^3/uL (0-0.2); Eosinophils # (auto) 0.1 10 ^3/uL (0-0.8); Eosinophils % (auto) 1.8 % (0.0-7.0); Hematocrit 42.9 % (41.0-53.0); Hemoglobin 14.2 g/dL (13.5-17.5); Lymphocytes # (auto) 1.7 10 ^3/uL (0.4-5.4); Lymphocytes % (auto) 23.7 % (10.0-50.0); Mean Corpuscular Hemoglobin 30.6 pg (28.0-32.0); Mean Corpuscular Volume 92.6 fL (80.0-100.0); Monocytes # (auto) 0.7 10 ^3/uL (0-1.3); Monocytes % (auto) 9.6 % (0.0-12.0); Neutrophils # (auto) 4.6 10 ^3/uL (1.6-8.6); Neutrophils % (auto) 63.9 % (37.0-80.0); Nucleated Red Blood Cells % 0.1 %; Red Blood Cells 4.63 10^6/uL (4.5-5.90); Red Cell Distribution Width 15.1 % (11.8-14.3); White Blood Cell 7.2 10^3/uL (4.4-10.8)
[2023-05-27 11:54] LABS: Alanine Aminotransferase 55 U/L (7-40); Albumin 4.2 g/dL (3.2-4.8); Alkaline Phosphatase 51 U/L (46-116); Anion Gap 10 (5-15); Aspartate Aminotransferase 39 U/L (13-40); BUN/Creatinine Ratio 22.1 (10.0-20.0); Bilirubin, Total 0.7 mg/dL (0.2-1.0); Blood Urea Nitrogen 15 mg/dL (9-23); Calcium 9.7 mg/dL (8.5-10.1); Carbon Dioxide 25 mmol/L (20-30); Chloride 105 mmol/L (98-107); Glucose 116 mg/dL (74-106); Potassium 4.3 mmol/L (3.5-5.1); Sodium 140 mmol/L (136-145); Total Protein 7.4 g/dL (5.7-8.2)
[2023-05-27 11:59] LABS: Lactic Acid w/Reflex 2.7 mmol/L (0.4-2.0)
[2023-05-27] MEDS: FUROSEMIDE 40 MG/4 ML VIAL IV ONE ×2 (13:12→13:19)
[2023-05-27 13:24] LABS: COVID19 ANTIGEN SOFIA FIA NEGATIVE (NEGATIVE)
[2023-05-27] MEDS ORDERED: ALBUTEROL SULF 2.5 MG/0.5ML(0.5%) NEB SOLN NEB PRN (17:15)
[2023-05-27] MEDS ORDERED: IPRATROPIUM BROM 0.5 MG/2.5ML INH SOL NEB PRN (17:15)
[2023-05-27] MEDS ORDERED: METOPROLOL TARTRATE 1MG/1ML-5ML VIAL IV PRN (17:15)
[2023-05-27 19:59] VITALS: O2SAT 95
[2023-05-27 20:00] VITALS: PULSE 89; RESP 18; TEMP 98; O2SAT 95
[2023-05-27] MEDS: METOPROLOL TARTRATE 25 MG TAB PO SCH (23:21)
[2023-05-27] MEDS: APIXABAN 5 MG TAB PO SCH (23:21)
[2023-05-28 06:30] VITALS: O2SAT 94
[2023-05-28] MEDS: APIXABAN 5 MG TAB PO SCH ×2 (10:41→22:00)
[2023-05-28] MEDS: METOPROLOL TARTRATE 25 MG TAB PO SCH (10:47)
[2023-05-28 20:29] VITALS: O2SAT 92
[2023-05-29] MEDS: METOPROLOL TARTRATE 25 MG TAB PO SCH ×3 (02:23→21:27)
[2023-05-29 07:28] VITALS: O2SAT 93
[2023-05-29 07:35] VITALS: PULSE 80; RESP 10; O2SAT 93
[2023-05-29] MEDS: APIXABAN 5 MG TAB PO SCH ×2 (10:59→21:28)
[2023-05-29 19:30] VITALS: PULSE 81; RESP 13; O2SAT 92
[2023-05-29 20:20] VITALS: O2SAT 93
[2023-05-30] VITALS (7 sets, daily range): BP systolic 121–133; BP diastolic 68–74; PULSE 73–108; RESP 11–20; TEMP 98.4–98.8; O2SAT 93–94
[2023-05-30] MEDS ORDERED: DOCUSATE SOD 100 MG CAP PO ONE (07:30)
[2023-05-30 09:09] LABS: Basophils # (auto) 0.1 10 ^3/uL (0-0.2); Basophils % (auto) 1.2 % (0.0-2.0); Eosinophils # (auto) 0.2 10 ^3/uL (0-0.8); Eosinophils % (auto) 3.7 % (0.0-7.0); Hematocrit 38.7 % (41.0-53.0); Hemoglobin 12.9 g/dL (13.5-17.5); Lymphocytes # (auto) 1.9 10 ^3/uL (0.4-5.4); Mean Corpuscular Hemoglobin 30.6 pg (28.0-32.0); Mean Corpuscular Hgb Conc. 33.3 g/dL (32.0-36.0); Mean Corpuscular Volume 92.1 fL (80.0-100.0); Monocytes # (auto) 0.6 10 ^3/uL (0-1.3); Monocytes % (auto) 11.9 % (0.0-12.0); Neutrophils # (auto) 2.3 10 ^3/uL (1.6-8.6); Neutrophils % (auto) 45.2 % (37.0-80.0); Nucleated Red Blood Cells % 0.1 %; Red Cell Distribution Width 14.8 % (11.8-14.3)
[2023-05-30 09:25] LABS: Alanine Aminotransferase 56 U/L (7-40); Albumin 3.6 g/dL (3.2-4.8); Alkaline Phosphatase 41 U/L (46-116); Anion Gap 5 (5-15); Aspartate Aminotransferase 45 U/L (13-40); BUN/Creatinine Ratio 17.3 (10.0-20.0); Bilirubin, Total 0.7 mg/dL (0.2-1.0); Blood Urea Nitrogen 9 mg/dL (9-23); Calcium 9.1 mg/dL (8.5-10.1); Carbon Dioxide 29 mmol/L (20-30); Chloride 104 mmol/L (98-107); Glucose 91 mg/dL (74-106); Potassium 3.9 mmol/L (3.5-5.1); Sodium 138 mmol/L (136-145); Total Protein 6.5 g/dL (5.7-8.2)
[2023-05-30] MEDS: APIXABAN 5 MG TAB PO SCH ×2 (10:12→22:15)
[2023-05-30] MEDS: METOPROLOL TARTRATE 25 MG TAB PO SCH ×2 (10:13→22:15)
[2023-05-30] MEDS ORDERED: MORPHINE SULFATE INJ 2 MG/ml SYRG IV PRN (10:30)
[2023-05-30] MEDS ORDERED: NITROGLYCERIN 0.4 MG SL TAB SL PRN (10:30)
[2023-05-30] MEDS: FUROSEMIDE 20 MG TAB PO SCH (13:42)
[2023-05-30] MEDS: DOXYCYCLINE 100 MG TAB/CAP PO SCH ×2 (13:42→22:15)
[2023-05-30] MEDS: ACETAMINOPHEN 325 MG TAB PO PRN (17:10)
[2023-05-30] MEDS ORDERED: HYDROcodone-ACET 5/325MG TAB PO PRN (20:30)
[2023-05-30] MEDS: DOCUSATE SOD 100 MG CAP PO SCH (20:37)
[2023-05-31] VITALS (7 sets, daily range): BP systolic 111–130; BP diastolic 60–77; PULSE 77–92; RESP 17–21; TEMP 36.5; O2SAT 94–96
[2023-05-31 06:57] LABS: Basophils # (auto) 0 10 ^3/uL (0-0.2); Basophils % (auto) 0.8 % (0.0-2.0); Eosinophils # (auto) 0.2 10 ^3/uL (0-0.8); Eosinophils % (auto) 3.2 % (0.0-7.0); Hematocrit 39.1 % (41.0-53.0); Hemoglobin 12.9 g/dL (13.5-17.5); Lymphocytes # (auto) 2.1 10 ^3/uL (0.4-5.4); Mean Corpuscular Hemoglobin 30.3 pg (28.0-32.0); Mean Corpuscular Volume 91.9 fL (80.0-100.0); Monocytes # (auto) 0.6 10 ^3/uL (0-1.3); Monocytes % (auto) 11.7 % (0.0-12.0); Neutrophils # (auto) 2.5 10 ^3/uL (1.6-8.6); Neutrophils % (auto) 46.3 % (37.0-80.0); Nucleated Red Blood Cells % 0.2 %; Red Blood Cells 4.26 10^6/uL (4.5-5.90); Red Cell Distribution Width 14.8 % (11.8-14.3); White Blood Cell 5.4 10^3/uL (4.4-10.8)
[2023-05-31 07:23] LABS: Anion Gap 8 (5-15); Carbon Dioxide 27 mmol/L (20-30); Chloride 103 mmol/L (98-107); Potassium 3.9 mmol/L (3.5-5.1); Sodium 138 mmol/L (136-145)
[2023-05-31 07:24] LABS: Calcium 8.9 mg/dL (8.7-10.4)
[2023-05-31 07:29] LABS: Blood Urea Nitrogen 6 mg/dL (9-23); Glucose 100 mg/dL (74-106)
[2023-05-31] MEDS: DOCUSATE SOD 100 MG CAP PO SCH ×2 (10:00→21:55)
[2023-05-31] MEDS: APIXABAN 5 MG TAB PO SCH ×2 (10:50→21:55)
[2023-05-31] MEDS: METOPROLOL TARTRATE 25 MG TAB PO SCH ×2 (10:51→21:55)
[2023-05-31] MEDS: DOXYCYCLINE 100 MG TAB/CAP PO SCH ×2 (10:51→21:51)
[2023-05-31] MEDS: FUROSEMIDE 20 MG TAB PO SCH (10:51)
[2023-05-31] MEDS: ACETAMINOPHEN 325 MG TAB PO PRN ×2 (15:01→21:55)
[2023-06-01] VITALS (8 sets, daily range): BP systolic 114–135; BP diastolic 64–87; PULSE 69–84; RESP 17–20; TEMP 36.6; O2SAT 92–95
[2023-06-01] MEDS: APIXABAN 5 MG TAB PO SCH ×2 (09:05→21:14)
[2023-06-01] MEDS: DOCUSATE SOD 100 MG CAP PO SCH ×2 (09:05→21:14)
[2023-06-01] MEDS: DOXYCYCLINE 100 MG TAB/CAP PO SCH ×2 (09:06→21:14)
[2023-06-01] MEDS: METOPROLOL TARTRATE 25 MG TAB PO SCH ×2 (09:06→21:36)
[2023-06-01] MEDS: FUROSEMIDE 20 MG TAB PO SCH (09:07)
[2023-06-01] MEDS: ACETAMINOPHEN 325 MG TAB PO PRN (21:17)
[2023-06-01] MEDS: LINEZOLID 600MG TABLET PO SCH (21:43)
[2023-06-02] VITALS (7 sets, daily range): BP systolic 116–134; BP diastolic 52–76; PULSE 62–93; RESP 18–21; TEMP 97.3–97.8; O2SAT 94–95
[2023-06-02] MEDS: METOPROLOL TARTRATE 25 MG TAB PO SCH ×2 (10:25→22:04)
[2023-06-02] MEDS: DOXYCYCLINE 100 MG TAB/CAP PO SCH ×2 (10:26→22:03)
[2023-06-02] MEDS: LINEZOLID 600MG TABLET PO SCH ×2 (10:26→22:04)
[2023-06-02] MEDS: DOCUSATE SOD 100 MG CAP PO SCH ×2 (10:26→22:03)
[2023-06-02] MEDS: APIXABAN 5 MG TAB PO SCH ×2 (10:26→22:04)
[2023-06-02] MEDS: FUROSEMIDE 20 MG TAB PO SCH (10:26)
[2023-06-03] VITALS (8 sets, daily range): BP systolic 97–129; BP diastolic 44–95; PULSE 74–106; RESP 16–21; TEMP 97.4–98.5; O2SAT 92–97
[2023-06-03] MEDS: DOCUSATE SOD 100 MG CAP PO SCH ×2 (09:43→21:07)
[2023-06-03] MEDS: FUROSEMIDE 20 MG TAB PO SCH (09:43)
[2023-06-03] MEDS: APIXABAN 5 MG TAB PO SCH ×2 (09:43→21:07)
[2023-06-03] MEDS: LINEZOLID 600MG TABLET PO SCH ×2 (09:43→21:07)
[2023-06-03] MEDS: METOPROLOL TARTRATE 25 MG TAB PO SCH ×2 (09:44→21:07)
[2023-06-03] MEDS: DOXYCYCLINE 100 MG TAB/CAP PO SCH ×2 (09:44→21:07)
[2023-06-03] MEDS: ACETAMINOPHEN 325 MG TAB PO PRN (19:56)
[2023-06-04 05:00] VITALS: BP 118/65; PULSE 72; RESP 18; TEMP 98.4; O2SAT 18
[2023-06-04 08:00] VITALS: PULSE 74; RESP 18; O2SAT 95
[2023-06-04] MEDS: DOCUSATE SOD 100 MG CAP PO SCH (08:26)
[2023-06-04] MEDS: APIXABAN 5 MG TAB PO SCH (08:27)
[2023-06-04] MEDS: METOPROLOL TARTRATE 25 MG TAB PO SCH (08:27)
[2023-06-04] MEDS: DOXYCYCLINE 100 MG TAB/CAP PO SCH (08:28)
[2023-06-04] MEDS: LINEZOLID 600MG TABLET PO SCH (08:28)
[2023-06-04] MEDS: FUROSEMIDE 20 MG TAB PO SCH (08:28)
[2023-06-04 09:00] VITALS: BP 130/66; PULSE 78; RESP 17; TEMP 98; O2SAT 17
[2023-06-04 13:00] VITALS: BP 122/60; PULSE 81; RESP 17; TEMP 97.7; O2SAT 95
[2023-06-04] MEDS: ACETAMINOPHEN 325 MG TAB PO PRN (15:04)
== END 2023-06-04 17:49 | DRG 871 ==
LOC: ER 10:30 → EDBD 10:30 → TELE 05-30 10:17 → TELE-WESTW 05-30 11:40
PROVIDERS: ADMIT Nurse Practitioner Acute Care; ATTEND Nurse Practitioner Acute Care
DX: A41.2 Sepsis due to unspecified staphylococcus (principal); I50.23 Acute on chronic systolic (congestive) heart failure; J96.21 Acute and chronic respiratory failure with hypoxia; Z68.43 Body mass index [BMI] 50.0-59.9, adult; E66.01 Morbid (severe) obesity due to excess calories; I48.0 Paroxysmal atrial fibrillation; R53.81 Other malaise; Z20.822 Contact with and (suspected) exposure to COVID-19; Z60.2 Problems related to living alone; B95.2 Enterococcus as the cause of diseases classified elsewhere; Z83.3 Family history of diabetes mellitus; M25.512 Pain in left shoulder; Z83.49 Family history of other endocrine, nutritional and metabolic diseases; Z79.01 Long term (current) use of anticoagulants
CPT/HCPCS: 36415; 71045; 73030; 80048; 80053; 83605; 83735; 83880; 84484; 85025; 87040; 87077; 87186; 87426; 93005; 96374; 97110; 97116; 97163; 97530; 99291; G0378